=== PATIENT | female | born 1955 | race Caucasian/White ===

== ENCOUNTER 2016-12-31 07:45 | Emergency (ER) | payer OTHER ==
[2016-12-31 07:54] VITALS: BP 134/71
[2016-12-31] MEDS ORDERED: Neomyc/Polym/HC 1% OTIC SUSP* **OTIC RIGHT EAR ONE (08:05)
--- NOTE | 2016-12-31 08:12 | UC ---
Ear Complaint HPI - HPI Summary HPI Summary: 61 yo female with right ear discomfort and decreased hearing Got markedly worse past day with right ear redness No fever or chills no PETE or myalgias - History of Current Complaint Chief Complaint: UCEar Stated Complaint: RIGHT EAR COMPLAINT Time Seen by Provider: 12/31/16 08:00 Hx Obtained From: Patient Hx Last Menstrual Period: n/a Onset/Duration: Gradual Onset, Lasting Days Severity Initially: Mild Severity Currently: Moderate Pain Intensity: 4 Pain Scale Used: 0-10 Numeric Alleviating Factors: Nothing Associated Signs/Symptoms: Positive: Hearing Loss, Swelling @ - Allergies/Home Medications Allergies/Adverse Reactions: Allergies Allergy/AdvReac Type Severity Reaction Status Date / Time Sulfa Antibiotics Allergy Hives Verified 12/31/16 07:54 Home Medications: Home Medications Acetaminophen [Acetaminophen Extra Stren] 1 tab PO BID 12/31/16 [History Confirmed 12/31/16] Docusate Sodium [Colace] 100 mg PO BID 12/31/16 [History Confirmed 12/31/16] Esomeprazole Magnesium [Nexium 24Hr] 1 tab PO DAILY 12/31/16 [History Confirmed 12/31/16] Naproxen TAB* [Naprosyn 250 mg TAB*] 250 mg PO BID 12/31/16 [History Confirmed 12/31/16] Ranitidine HCl [Zantac] 150 mg PO DAILY 12/31/16 [History Confirmed 12/31/16] PMH/Surg Hx/FS Hx/Imm Hx Previously Healthy: Yes Cardiovascular History Of: Reports: Hypertension - Surgical History Surgical History: Yes Surgery Procedure, Year, and Place: 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 1994 hysterectomy - Family History Known Family History: Positive: Hypertension - Social History Alcohol Use: Occasionally Alcohol Amount: glass of wine Substance Use Type: None Smoking Status (MU): Never Smoked Tobacco Review of Systems Constitutional: Negative Skin: Negative Eyes: Negative ENT: Ear Ache Respiratory: Negative Cardiovascular: Negative Gastrointestinal: Negative Genitourinary: Negative Motor: Negative Neurovascular: Negative Musculoskeletal: Negative Neurological: Negative Psychological: Negative All Other Systems Reviewed And Are Negative: Yes Physical Exam Triage Information Reviewed: Yes Appearance: Well-Appearing, No Pain Distress, Well-Nourished Vital Signs: Initial Vital Signs Temp 97.6 F 12/31/16 07:46 Pulse 94 12/31/16 07:46 Resp 18 12/31/16 07:46 BP 134/71 12/31/16 07:46 Pulse Ox 97 12/31/16 07:46 Vital Signs Reviewed: Yes Eyes: Positive: Conjunctiva Clear ENT: Positive: Pharynx normal, TMs normal - left/unable to vis right TM due to swollen EAC, Other: - right tragal tenderness/auricle red/no tragal tenderness. Negative: Hearing grossly normal, Nasal congestion, Nasal drainage Dental: Negative: Gross Decay/Caries @ Neck: Positive: Supple, Nontender Respiratory: Positive: Lungs clear, Normal breath sounds, No respiratory distress Cardiovascular: Positive: RRR, No Murmur Musculoskeletal: Positive: ROM Intact, No Edema Neurological: Positive: Alert Psychological Exam: Normal Skin Exam: Normal Procedures - Procedure Summary Procedure Summary: HASSAN ear wick inserted into right EAC 4 drops of cortisporin otic suspension instill pt tolerated procedure well Ear Complaint Course/Dx - Differential Dx/Diagnosis Provider Diagnoses: right otitis externa with pinna cellulitis Discharge - Discharge Plan Condition: Stable Disposition: HOME Prescriptions: Cephalexin CAP* [Keflex 500 CAP*] 500 mg PO QID #28 cap Patient Education Materials: Cellulitis (ED), Otitis Externa (ED) Referrals: Non Staff,Doctor [Primary Care Provider] - 3 Days Additional Instructions: instill 4 drops into right ear 4x day for 7 days recheck for new or worsening symptoms see your MD mid week
== END 2016-12-31 08:32 | disposition home or self-care (01) ==
LOC: UCCORT 07:45
DX: H60.11 Cellulitis of right external ear (principal)
CPT/HCPCS: 99202; A9270-GY; G0463

== ENCOUNTER 2016-12-31 15:59 | Emergency (ER) | payer OTHER ==
[2016-12-31 16:20] VITALS: BP 141/71
--- NOTE | 2016-12-31 16:44 | UC ---
Ear Complaint HPI - HPI Summary HPI Summary: Patient was seen earlier today for otitis externa and cellulitis. given cortisporin and keflex and she has taken two doses. she is experiencing sharp stabbing pains and the erythema is now extendng down the neck and face - History of Current Complaint Hx Obtained From: Patient Hx Last Menstrual Period: n/a ?: No Onset/Duration: Sudden Onset, Lasting Days Severity Initially: Moderate Severity Currently: Moderate Aggravating Factors: Nothing Alleviating Factors: Nothing Associated Signs/Symptoms: Positive: Discharge, Swelling @, URI Symptoms <Luana Pickens - Last Filed: 12/31/16 16:38> <Kelly Roy - Last Filed: 12/31/16 16:53> - History of Current Complaint Chief Complaint: UCEar Stated Complaint: RIGHT EAR PAIN Time Seen by Provider: 12/31/16 16:24 - Allergies/Home Medications Allergies/Adverse Reactions: Allergies Allergy/AdvReac Type Severity Reaction Status Date / Time Sulfa Antibiotics Allergy Hives Verified 12/31/16 16:11 PMH/Surg Hx/FS Hx/Imm Hx Previously Healthy: Yes Cardiovascular History Of: Reports: Hypertension - Surgical History Surgical History: Yes Surgery Procedure, Year, and Place: 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 1994 hysterectomy - Family History Known Family History: Positive: Hypertension - Social History Alcohol Use: Occasionally Alcohol Amount: glass of wine Substance Use Type: None Smoking Status (MU): Never Smoked Tobacco - Immunization History Most Recent Influenza Vaccination: NONE Most Recent Tetanus Shot: UTD Most Recent Pneumonia Vaccination: UTD <Luana Pickens - Last Filed: 12/31/16 16:38> Review of Systems Constitutional: Fever Skin: Rash Eyes: Negative ENT: Ear Ache Respiratory: Negative Gastrointestinal: Negative Genitourinary: Negative Motor: Negative Neurovascular: Negative Musculoskeletal: Negative Neurological: Negative Psychological: Negative All Other Systems Reviewed And Are Negative: Yes <Luana Pickens - Last Filed: 12/31/16 16:38> Physical Exam Triage Information Reviewed: Yes Appearance: Well-Nourished, Ill-Appearing, Pain Distress Vital Signs: Initial Vital Signs Temp 99.1 F 12/31/16 16:12 Pulse 101 12/31/16 16:12 Resp 18 12/31/16 16:12 BP 141/71 12/31/16 16:12 Pulse Ox 98 12/31/16 16:12 Vital Signs Reviewed: Yes Eye Exam: Normal Eyes: Positive: Conjunctiva Clear ENT: Positive: Pharyngeal erythema, Other: - right aurical and tragus is red and swollen, erythema extending down the neck and behind the hair line, external canal swollen, red, purulent dark exudate in ear, foul smelling odor Dental Exam: Normal Neck exam: Normal Neck: Positive: Supple, Nontender, Enlarged Nodes @ - behind right ear Respiratory Exam: Normal Respiratory: Positive: Chest non-tender, Lungs clear, Normal breath sounds Cardiovascular Exam: Normal Cardiovascular: Positive: No Murmur, Pulses Normal, Tachycardia Abdominal Exam: Normal Abdomen Description: Positive: Nontender, No Organomegaly, Soft Bowel Sounds: Positive: Present Musculoskeletal Exam: Normal Musculoskeletal: Positive: Strength Intact, ROM Intact, No Edema Neurological Exam: Normal Neurological: Positive: Alert, Muscle Tone Normal Psychological Exam: Normal Skin Exam: Normal <Luana Pickens - Last Filed: 12/31/16 16:38> Vital Signs: Initial Vital Signs Temp 99.1 F 12/31/16 16:12 Pulse 101 12/31/16 16:12 Resp 18 12/31/16 16:12 BP 141/71 12/31/16 16:12 Pulse Ox 98 12/31/16 16:12 <Kelly Roy - Last Filed: 12/31/16 16:53> Ear Complaint Course/Dx - Course Course Of Treatment: hx obtained, exam performed, meds reviewed, sent to ER via private car, paperowrk signed and talked to Dr rivera in the ER - Differential Dx/Diagnosis Differential Diagnosis/HQI/PQRI: Cellulitis, Cerumen Impaction, Foreign Body, Otitis Externa, Otitis Media, URI Provider Diagnoses: cellulitis. otitis externa - Physician Notifications Discussed Patient Care With: Dr. Michael Rivera [facility] <Luana Pickens - Last Filed: 12/31/16 16:38> - Course Course Of Treatment: Note by Dr. Roy: Pt seen and examined and concur with Luana's evaluation. Pt with cellulitis of the right ear and face and otitis externa, rapidly progressing. Needs higher level of care and IV antibiotics. Pt signs AMA for ambulance. Is ambulatory at discharge. <Kelly Roy - Last Filed: 12/31/16 16:53> Discharge <Luana Pickens - Last Filed: 12/31/16 16:38> <Kelly Roy - Last Filed: 12/31/16 16:53> - Discharge Plan Condition: Stable Disposition: TRANS HIGHER LVL OF CARE FAC Referrals: Non Staff,Doctor [Primary Care Provider] -
== END 2016-12-31 17:02 | disposition left against medical advice (07) ==
LOC: UCCORT 15:59
DX: H60.11 Cellulitis of right external ear (principal); H60.91 Unspecified otitis externa, right ear
CPT/HCPCS: 99212; G0463